=== PATIENT | female | born 1955 | race African-American/Black ===

== ENCOUNTER 2018-02-25 14:32 | Inpatient (IN) | payer MEDICAID ==
[~2018-02-25] VITALS: Ht 165.1 cm; Wt 59.1 kg
[~2018-02-25 14:32] MED LIST: HYDR25TA; LISIN
[2018-02-25] MEDS ORDERED: LABETALOL 5MG/ML SYR 20 MG/4 ML SYRINGE IV PRN (14:45)
[2018-02-25 14:56] LABS: BASOPHILS % 0.5 % (0.0-2.0); EOSINOPHILS % 1.6 % (0.0-5.0); HEMOGLOBIN. 12.8 g/dL (12.0-16.0); MEAN CORPUSCULAR HEMOGLOBIN 29.2 pg (28.0-32.0); MEAN CORPUSCULAR VOLUME 86.7 fL (81.0-99.0); MEAN PLATELET VOLUME 8.2 fl (7.4-10.4); MONOCYTES % 5.5 % (2.0-8.0); NEUTROPHILS % 47.4 % (40.0-76.0); PLATELET 191 x1000/uL (130-400); RED BLOOD CELL COUNT 4.38 mill/uL (4.2-5.4); RED CELL DISTRIBUTION WIDTH 14.8 % (11.6-14.6)
[2018-02-25] MEDS ORDERED: LABETALOL HCL 20MG/4ML CARPUJECT IV ONE (14:57)
[2018-02-25] MEDS ORDERED: LABETALOL HCL 20MG/4ML CARPUJECT IV PRN (15:00)
[2018-02-25 15:03] LABS: PROTHROMBIN TIME 10.1 sec (9.1-11.1)
[2018-02-25 15:04] LABS: CHLORIDE 105 mEq/L (98-107)
[2018-02-25 15:08] LABS: ETHANOL BLOOD < 10 mg/dL
[2018-02-25 15:11] LABS: LDL CHOLESTEROL 145 mg/dL (5-100)
[2018-02-25] MEDS ORDERED: ASPIRIN 81MG TABLET PO ONE (15:15)
[2018-02-25] MEDS ORDERED: CLOPIDOGREL 75MG TABLET PO ONE (15:15)
[2018-02-25 15:46] LABS: CLARITY URINE CLEAR (CLEAR); COLOR URINE YELLOW (YELLOW); KETONES URINE NEGATIVE (NEGATIVE); LEUKOCYTE ESTERASE URINE NEGATIVE (NEGATIVE); NITRITE URINE NEGATIVE (NEGATIVE); OCCULT BLOOD URINE NEGATIVE (NEGATIVE); PH URINE 7.5 (4.5-8.0); PROTEIN URINE NEGATIVE (NEGATIVE); SPECIFIC GRAVITY URINE 1.011 (1.005-1.030); UROBILINOGEN URINE 0.2 E.U./dL (0.2-1.0)
[2018-02-25 16:06] LABS: *AMPHETAMINES SCREEN URINE NEGATIVE (NEGATIVE); *BARBITURATES SCREEN URINE NEGATIVE (NEGATIVE); *BENZODIAZEPINES SCREEN URINE NEGATIVE (NEGATIVE)
[2018-02-25 16:07] LABS: *COCAINE SCREEN URINE NEGATIVE (NEGATIVE); CANNABINOID URINE SCREEN PRESUMTIVE POSITIVE (NEGATIVE); METHADONE URINE SCREEN NEGATIVE (NEGATIVE); OPIATES URINE SCREEN NEGATIVE (NEGATIVE); PHENCYCLIDINE URINE SCREEN NEGATIVE (NEGATIVE)
[2018-02-25] MEDS ORDERED: CLONIDINE 0.1MG TABLET PO PRN (16:45)
[2018-02-25] MEDS ORDERED: GUAIFENESIN 200MG/10ML SUGAR FREE UDC PO PRN (16:45)
[2018-02-25] MEDS ORDERED: HYDROMORPHONE HCL/PF 2MG/ML CPJ IV PRN (16:45)
[2018-02-25 17:54] VITALS: BP 216/95
[2018-02-25 18:00] VITALS: BP 207/89
[2018-02-25] MEDS ORDERED: FUROSEMIDE 40MG/4ML VIAL IVP SCH (19:00)
[2018-02-25 20:00] VITALS: BP 183/86
[2018-02-25] MEDS ORDERED: METOPROLOL TARTRATE 50MG TABLET PO ONE (21:00)
[2018-02-25 22:00] VITALS: BP 173/88
[2018-02-26] VITALS (8 sets, daily range): BP systolic 151–201; BP diastolic 68–90
[2018-02-26] MEDS: CLOPIDOGREL 75MG TABLET PO SCH (08:58)
[2018-02-26] MEDS: AMLODIPINE 5MG TABLET PO SCH ×2 (08:58→22:09)
[2018-02-26] MEDS: ENOXAPARIN 40MG/0.4ML SYR SUBCUT SCH (09:17)
[2018-02-26] MEDS ORDERED: POTASSIUM CHLORIDE 20MEQ TABLET SR PO NR (09:45)
[2018-02-26] MEDS ORDERED: HYDRALAZINE 20MG/ML VIAL IV NR (09:45)
[2018-02-26] MEDS ORDERED: CLONIDINE 0.1MG TABLET PO PRN (11:30)
[2018-02-26] MEDS: NIFEDIPINE XL 60MG TAB PO SCH (12:19)
[2018-02-26] MEDS: HYDRALAZINE HCL 100MG TABLET PO SCH ×2 (13:56→22:40)
[2018-02-26] MEDS ORDERED: HYDRALAZINE HCL 50MG TABLET PO SCH (14:00)
[2018-02-26 18:08] LABS: BASOPHILS % 0.6 % (0.0-2.0); EOSINOPHILS % 1.6 % (0.0-5.0); HEMATOCRIT. 40.5 % (36.0-48.0); HEMOGLOBIN. 13.5 g/dL (12.0-16.0); LYMPHOCYTES % 39.6 % (20.0-50.0); MEAN CORPUSCULAR HEMOGLOBIN 28.8 pg (28.0-32.0); MEAN CORPUSCULAR VOLUME 86.9 fL (81.0-99.0); MEAN PLATELET VOLUME 8.7 fl (7.4-10.4); MONOCYTES % 6.8 % (2.0-8.0); NEUTROPHILS % 51.4 % (40.0-76.0); PLATELET 204 x1000/uL (130-400); RED BLOOD CELL COUNT 4.67 mill/uL (4.2-5.4)
[2018-02-26 18:15] LABS: CHLORIDE 104 mEq/L (98-107)
[2018-02-26 18:21] LABS: PHOSPHORUS 2.4 mg/dL (2.5-4.9)
[2018-02-26 18:23] LABS: LDL CHOLESTEROL 150 mg/dL (5-100)
[2018-02-26 18:25] LABS: HDL CHOLESTEROL 51 mg/dL (40-59)
[2018-02-26 18:27] LABS: CREATINE KINASE MB FRACTION < 1.0 ng/mL (0.5-3.6)
[2018-02-26] MEDS: ATORVASTATIN CALCIUM 40MG TABLET PO SCH (22:08)
[2018-02-27] VITALS (11 sets, daily range): BP systolic 132–158; BP diastolic 57–89
[2018-02-27] MEDS: HYDRALAZINE HCL 100MG TABLET PO SCH ×3 (06:54→21:07)
[2018-02-27] MEDS: CLOPIDOGREL 75MG TABLET PO SCH (08:43)
[2018-02-27] MEDS: AMLODIPINE 5MG TABLET PO SCH ×2 (08:44→21:07)
[2018-02-27] MEDS: NIFEDIPINE XL 60MG TAB PO SCH (08:45)
[2018-02-27] MEDS: ENOXAPARIN 40MG/0.4ML SYR SUBCUT SCH (08:45)
[2018-02-27 13:14] LABS: BASOPHILS % 0.5 % (0.0-2.0); CHLORIDE 107 mEq/L (98-107); HEMATOCRIT. 40.9 % (36.0-48.0); HEMOGLOBIN. 13.7 g/dL (12.0-16.0); LYMPHOCYTES % 41.2 % (20.0-50.0); MEAN CORPUSCULAR VOLUME 86.4 fL (81.0-99.0); MEAN PLATELET VOLUME 8.3 fl (7.4-10.4); MONOCYTES % 5.6 % (2.0-8.0); NEUTROPHILS % 51.7 % (40.0-76.0); PLATELET 222 x1000/uL (130-400); RED BLOOD CELL COUNT 4.73 mill/uL (4.2-5.4); RED CELL DISTRIBUTION WIDTH 15.3 % (11.6-14.6)
[2018-02-27] MEDS: ATORVASTATIN CALCIUM 40MG TABLET PO SCH (21:06)
[2018-02-28] VITALS (9 sets, daily range): BP systolic 118–161; BP diastolic 54–89
[2018-02-28] MEDS: HYDRALAZINE HCL 100MG TABLET PO SCH ×2 (05:41→13:18)
[2018-02-28 07:05] LABS: BASOPHILS % 0.5 % (0.0-2.0); EOSINOPHILS % 2.1 % (0.0-5.0); HEMATOCRIT. 40.3 % (36.0-48.0); HEMOGLOBIN. 13.8 g/dL (12.0-16.0); LYMPHOCYTES % 36.7 % (20.0-50.0); MEAN CORPUSCULAR HEMOGLOBIN 29.5 pg (28.0-32.0); MEAN CORPUSCULAR VOLUME 85.9 fL (81.0-99.0); MEAN PLATELET VOLUME 8.5 fl (7.4-10.4); NEUTROPHILS % 54.7 % (40.0-76.0); PLATELET 194 x1000/uL (130-400); RED BLOOD CELL COUNT 4.69 mill/uL (4.2-5.4); RED CELL DISTRIBUTION WIDTH 14.4 % (11.6-14.6)
[2018-02-28 07:09] LABS: CHLORIDE 105 mEq/L (98-107)
[2018-02-28] MEDS: CLOPIDOGREL 75MG TABLET PO SCH (08:54)
[2018-02-28] MEDS: NIFEDIPINE XL 60MG TAB PO SCH (08:55)
[2018-02-28] MEDS: AMLODIPINE 5MG TABLET PO SCH (08:55)
[2018-02-28] MEDS: ENOXAPARIN 40MG/0.4ML SYR SUBCUT SCH (08:56)
[2018-02-28] MEDS ORDERED: POTASSIUM CHLORIDE 20MEQ TABLET SR PO SCH (09:45)
== END 2018-02-28 15:30 | disposition home or self-care (01) | DRG 45 ==
LOC: ER 14:32 → 5EST 15:27 → EDBEDREQ 15:28 → EDBEDREQTM 15:28 → ENRESERV 15:40
PROVIDERS: ADMIT Internal Medicine Nephrology; ATTEND Internal Medicine Nephrology
DX: I63.9 Cerebral infarction, unspecified (principal); I11.9 Hypertensive heart disease without heart failure; I69.354 Hemiplegia and hemiparesis following cerebral infarction affecting left non-dominant side; E78.5 Hyperlipidemia, unspecified; E87.6 Hypokalemia; F12.10 Cannabis abuse, uncomplicated; F17.210 Nicotine dependence, cigarettes, uncomplicated; R00.1 Bradycardia, unspecified; I16.0 Hypertensive urgency; W19.XXXA Unspecified fall, initial encounter; Y93.89 Activity, other specified; Y92.89 Other specified places as the place of occurrence of the external cause; Y99.8 Other external cause status; Z91.14 Patient's other noncompliance with medication regimen; Z91.19 Patient's noncompliance with other medical treatment and regimen; Z88.5 Allergy status to narcotic agent; Z88.0 Allergy status to penicillin; Z79.899 Other long term (current) drug therapy
CPT/HCPCS: 36415; 70551; 71045; 80048; 80061; 80305; 82553; 83721; 83735; 84100; 84443; 84484; 92523; 93005; 93306; 93880; 96374; 97116; 97162; 99291; G0482; J0360; J1650; J1940; J3490